=== PATIENT | male | born 2000 | race African-American/Black ===

== ENCOUNTER 2018-08-05 10:08 | Observation (INO) | payer OTHER ==
[2018-08-05] MEDS ORDERED: NS 1,000 ML IV ONE ×2 (10:27→18:48)
--- NOTE | 2018-08-05 10:36 | EDPHY ---
H & P Stated Complaint: SEEN AT [facility] FOR CP YESTERDAY/HAD ABNL LABS AND EKG - Personal History Current Tetanus Diphtheria and Acellular Pertussis (TDAP): Yes - Medical/Surgical History Hx Asthma: No Hx Chronic Respiratory Disease: No Hx Diabetes: No Hx Cardiac Disease: No Hx Renal Disease: No Hx Cirrhosis: No Hx Alcoholism: No Hx HIV/AIDS: No Hx Splenectomy or Spleen Trauma: No Other PMH: BRAIN CYST/HX SEIZURES - Social History Smoking Status: Never smoked Time Seen by Provider: 08/05/18 10:18 HPI/ROS: Chief complaint: Abnormal laboratory studies and EKG History of present illness: This is an 17-year-old male who presents to the emergency department for evaluation of abnormal laboratory studies and EKGs. Patient reports he was lifting weights 2 days ago. Yesterday developed some chest pain, initially described as a soreness and then became a pressure. He went to [facility]. Apparently he had laboratory studies performed yesterday and today which showed a hyperkalemia in the range of 6, elevated LFTs. They also reported an abnormal EKG. [facility] subsequently called back after he came to the emergency department and reported his CPK was 48,000. On my evaluation he states he is feeling better. His chest discomfort has resolved. He is pain free. He states he engaged in a typical exercise routine 2 days ago. He does note he has a history of seizures, he had been on Depakote since early fall, however it was switched approximately 9 days ago from Depakote to Lamictal. He denies other associated signs or symptoms. Review of systems: A 10 point review of systems was obtained and other than described above was negative (Kush Jenkins) - Social History Additional Social History: Patient denies the use of tobacco, alcohol or illicit drugs. (Kush Jenkins) - Physical Exam Exam: General Appearance: Alert, nontoxic. Eyes: Pupils equal and round no pallor or injection. ENT, Mouth: Mucous membranes moist. Respiratory: There are no retractions, lungs are clear to auscultation. Cardiovascular: Regular rate and rhythm. Gastrointestinal: Abdomen is soft and non tender, no masses, bowel sounds normal. Neurological: Alert and oriented x4. Strength and sensation intact and symmetrical. Skin: Warm and dry, no rashes. Musculoskeletal: Neck is supple non tender. Extremities are symmetrical, full range of motion. Psychiatric: Patient is oriented X 3, there is no agitation. (Kush Jenkins) Constitutional: Initial Vital Signs Temperature (C) 36.7 C 08/05/18 10:12 Heart Rate 70 08/05/18 10:12 Respiratory Rate 17 08/05/18 10:12 Blood Pressure 93/63 L 08/05/18 10:12 O2 Sat (%) 98 08/05/18 10:12 O2 Delivery Mode Room Air Allergies/Adverse Reactions: No Known Allergies Allergy (Verified 08/05/18 13:47) Home Medications: Medication Instructions Recorded Ibuprofen [Motrin (*)] 200 mg PO DAILY PRN 08/05/18 lamoTRIgine [LaMICtal] 25 mg PO Q2D 08/05/18 Medical Decision Making - Diagnostics EKG Interpretation: EKG: Complete interpretation has been separately recorded in the [employer] archive. Summary impression: Sinus rhythm, rate 79, LVH, early repolarization (Barry Cabrera) ED Course/Re-evaluation: Patient seen under the supervision of my secondary supervising physician Dr. Marco Antonio Cabrera. Patient presents to the emergency department with reported abnormal EKG, potassium and liver studies performed at [facility]. [facility] called while he was here stating that his CK was greater than 48,000. On presentation here he is nontoxic. Vital signs are stable. EKG unremarkable. Potassium within normal limits. He does have a transaminitis. CK greater than 30,000. He has been given 2 L of IV fluid in the emergency department. He will be admitted for further evaluation and care. The plan has been discussed with the family voiced understanding and agreement with it. (Kush Jenkins) Differential Diagnosis: Included but not limited to acute rhabdomyolysis, electrolyte abnormalities, renal failure, medication side effect (Kush Jenkins) Other Provider: Independent physician documentation PHYSICIAN DOCUMENTATION: The patient was evaluated and managed by the Physician Chief Catalyst Operator. My co- signature indicates that I have reviewed this chart and I agree with the findings and plan of care as documented. I am the secondary supervising physician. I reviewed the patient's laboratory testing, EKG and discussed his plan for admission with the physician assistant professor of philosophy (Barry Cabrera) - Data Points Laboratory Results: Laboratory Results 08/05/18 11:00 08/05/18 11:00 08/05/18 08/05/18 08/05/18 11:05 11:00 11:00 WBC RBC Hgb Hct MCV MCH MCHC RDW Plt Count MPV Neut % (Auto) Lymph % (Auto) Ballard % (Auto) Eos % (Auto) Baso % (Auto) Nucleat RBC Rel Count Absolute Neuts (auto) Absolute Lymphs (auto) Absolute Monos (auto) Absolute Eos (auto) Absolute Basos (auto) Absolute Nucleated RBC Immature Gran % Immature Gran # PT INR APTT Turbidity Cancelled Sodium Cancelled Potassium Cancelled Chloride Cancelled Carbon Dioxide Cancelled Anion Gap Cancelled BUN Cancelled Creatinine Cancelled Estimated GFR Cancelled Glucose Cancelled Uric Acid 5.5 mg/dL mg/dL (3.5-8.5) Calcium Cancelled Total Bilirubin Conjugated Bilirubin Unconjugated Bilirubin AST ALT Alkaline Phosphatase Creatine Kinase CK-MB (CK-2) Fraction CK-MB (CK-2) % Creatine Kinase Interp POC Troponin I 0.00 ng/mL ng/mL (0.00-0.08) Total Protein Albumin Lipase Specimen Hemolysis Cancelled 08/05/18 08/05/18 08/05/18 11:00 11:00 11:00 WBC 6.06 10^3/uL 10^3/uL (3.80-9.50) RBC 5.39 10^6/uL 10^6/uL (4.40-6.38) Hgb 16.9 g/dL g/dL (13.7-17.5) Hct 49.7 % % (40.0-51.0) MCV 92.2 fL fL (81.5-99.8) MCH 31.4 pg pg (27.9-34.1) MCHC 34.0 g/dL g/dL (32.4-36.7) RDW 12.3 % % (11.5-15.2) Plt Count 258 10^3/uL 10^3/uL (150-400) MPV 9.9 fL fL (8.7-11.7) Neut % (Auto) 49.0 % % (39.3-74.2) Lymph % (Auto) 39.9 % % (15.0-45.0) Ballard % (Auto) 6.9 % % (4.5-13.0) Eos % (Auto) 3.5 % % (0.6-7.6) Baso % (Auto) 0.5 % % (0.3-1.7) Nucleat RBC Rel Count 0.0 % % (0.0-0.2) Absolute Neuts (auto) 2.97 10^3/uL 10^3/uL (1.70-6.50) Absolute Lymphs (auto) 2.42 10^3/uL 10^3/uL (1.00-3.00) Absolute Monos (auto) 0.42 10^3/uL 10^3/uL (0.30-0.80) Absolute Eos (auto) 0.21 10^3/uL 10^3/uL (0.03-0.40) Absolute Basos (auto) 0.03 10^3/uL 10^3/uL (0.02-0.10) Absolute Nucleated RBC 0.00 10^3/uL 10^3/uL (0-0.01) Immature Gran % 0.2 % % (0.0-1.1) Immature Gran # 0.01 10^3/uL 10^3/uL (0.00-0.10) PT 14.2 SEC SEC (12.0-15.0) INR 1.08 (0.83-1.16) APTT 29.7 SEC SEC (23.0-38.0) Turbidity Sodium 139 mEq/L mEq/L (135-145) Potassium 4.6 mEq/L mEq/L (3.5-5.2) Chloride 105 mEq/L mEq/L (97-110) Carbon Dioxide 24 mEq/l mEq/l (22-31) Anion Gap 10 mEq/L mEq/L (6-14) BUN 16 mg/dL mg/dL (7-23) Creatinine 0.9 mg/dL mg/dL (0.7-1.3) Estimated GFR > 60 Glucose 84 mg/dL mg/dL (70-100) Uric Acid Calcium 10.0 mg/dL mg/dL (8.5-10.4) Total Bilirubin 1.3 mg/dL mg/dL (0.1-1.4) Conjugated Bilirubin 0.3 mg/dL mg/dL (0.0-0.5) Unconjugated Bilirubin 1.0 mg/dL mg/dL (0.0-1.1) AST 887 IU/L H IU/L (17-59) ALT 326 IU/L H IU/L (21-72) Alkaline Phosphatase 59 IU/L IU/L (38-126) Creatine Kinase > 02117 IU/L H IU/L (0-224) CK-MB (CK-2) Fraction 18.30 ng/mL H ng/mL (0.00-4.55) CK-MB (CK-2) % < 0.1 % % (0.0-4.0) Creatine Kinase Interp NEGATIVE (NEGATIVE) POC Troponin I Total Protein 7.9 g/dL g/dL (6.3-8.2) Albumin 4.9 g/dL g/dL (3.5-5.0) Lipase 87 IU/L IU/L (23-300) Specimen Hemolysis Medications Given: Discontinued Medications Sodium Chloride (Ns) 1,000 mls @ 0 mls/hr IV ONCE ONE; Wide Open PRN Reason: Protocol Stop: 08/05/18 10:28 Last Admin: 08/05/18 11:04 Dose: 1,000 mls Point of Care Test Results: Chemistry 08/05/18 11:05 POC Troponin I 0.00 ng/mL ng/mL (0.00-0.08) Departure - Departure Disposition: [facility] Inpatient Acute Clinical Impression: Rhabdomyolysis Qualifiers: Rhabdomyolysis type: non-traumatic Qualified Code(s): M62.82 - Rhabdomyolysis Condition: Good
[2018-08-05 11:20] LABS: PLATELET COUNT 258 10^3/uL (150-400)
[2018-08-05 11:25] LABS: INR 1.08 (0.83-1.16); PROTIME(PATIENT) 14.2 SEC (12.0-15.0)
--- NOTE | 2018-08-05 11:28 | CPEKG ---
Test Reason : OPEN Blood Pressure : / mmHG Vent. Rate : 079 BPM Atrial Rate : 080 BPM P-R Int : 172 ms QRS Dur : 094 ms QT Int : 381 ms P-R-T Axes : 073 080 046 degrees QTc Int : 437 ms Sinus rhythm LVH by voltage ST elev, probable normal early repol pattern Confirmed by Barry Cabrera ([id number]) on 08/05/2018 11:28:45 AM Referred By: Confirmed By:Barry Cabrera
[2018-08-05 13:10] LABS: CREATINE KINASE > 30000 IU/L (0-224)
[2018-08-05] MEDS ORDERED: ONDANSETRON DISINTEGRATING 4 MG TAB PO PRN (14:34)
[2018-08-05] MEDS ORDERED: ONDANSETRON 4 MG/2 ML VIAL IVP PRN (14:34)
[2018-08-05] MEDS ORDERED: oxyCODONE IR 5 MG TAB PO PRN (14:34)
[2018-08-05] MEDS ORDERED: ACETAMINOPHEN 325 MG TAB PO PRN (14:34)
--- NOTE | 2018-08-05 16:06 | PDGENHP ---
History and Physical - Chief Complaint abnormal labs - History of Present Illness 17yo M with history of seizure disorder on lamotrigine presents due to abnormal labs that were discovered for evaluation of chest pain. Woke up with a chest "ache" yesterday morning. Initially thought it was heartburn but not similar to prior episodes of such. This persisted prompting him to go to [facility] yesterday evening where labs showed a K 6.0, AST 700s, ALT 200s. He was instructed to return this morning for repeat labs, which he did and showed K 6.1 , AST 800s, ALT 200s and his CPK was reportedly 48,000. An ECG showed early repolarization. He was instructed to come to our ED for further evaluation. He feels generally fatigued but not weak. He did notice a darkening of his urine color over the weekend but this has improved to normal. He denies having any seizures. Has had 2 seizures in his life; last one was two kern ago in the setting of minimal sleep, dehydration, lack of PO intake. He has grand mal seizures and knows when they are about to occur; he did not have this sensation over the last few days. He is currently on lamictal for seizures , which was started 10 days ago. He was previously on depakote but stopped because it made him feel very lethargic. He was on keppra prior to depakote but stopped this because it made him feel as if he was going to have a seizure. He does report beginning a weight lifting exercise routine one week ago. He lifted weights last Friday through Friday and again two days ago on Friday. His muscles have been sore but nothing out of the ordinary. He hasn't lifted in about 6 months but has stayed relatively active playing basketball. He has also lifted weights in the past with no ill effects. Additionally, he has been drinking [id number]-bcc-uzdckys protein shakes up to 3 times daily for the last few weeks in order to regain some weight he lost unintentionally. He denies any alcohol consumption in the last two weeks. He drank intermittently while on depakote but this made his abdomen feel terrible. Of note, patient's mother reports that his LFTs were abnormal about 2 weeks ago while he was still on depakote. She does not know the exact lab values. History Information - Allergies/Home Medication List Allergies/Adverse Reactions: No Known Allergies Allergy (Verified 08/05/18 13:47) Home Medications: Ibuprofen [Motrin (*)] 200 mg PO DAILY PRN 08/05/18 [Last Taken Unknown] lamoTRIgine [LaMICtal] 25 mg PO Q2D 08/05/18 [Last Taken 08/03/18] I have personally reviewed and updated: family history, medical history, social history, surgical history - Past Medical History Additional medical history: seizure disorder - Surgical History Reports: no pertinent surgical hx - Family History Additional family history: no seizure history, no known myositis - Social History Smoking Status: Never smoked Alcohol Use: Rarely Drug Use: None Additional social history: Student at , 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 Review of Systems Review of Systems: ROS: 10pt was reviewed & negative except for what was stated in HPI & below Physical Exam Physical Exam: Temp Pulse Resp BP Pulse Ox 36.7 C 67 16 127/80 H 65 L 08/05/18 10:12 08/05/18 13:54 08/05/18 13:54 08/05/18 13:54 08/05/18 13:54 Constitutional: no apparent distress, appears nourished, not in pain Eyes: PERRL, anicteric sclera, EOMI Ears, Nose, Mouth, Throat: moist mucous membranes, hearing normal, ears appear normal, no oral mucosal ulcers Cardiovascular: regular rate and rhythym, no murmur, rub, or gallop, No edema Respiratory: no respiratory distress, no rales or rhonchi, clear to auscultation Gastrointestinal: normoactive bowel sounds, soft, non-tender abdomen, no palpable masses Genitourinary: no bladder fullness, no bladder tenderness Skin: warm, normal color, no rashes or abrasions, no fluctuance, no induration, No mottled Musculoskeletal: full muscle strength, no muscle tenderness, normal joint ROM, no joint effusions Neurologic: AAOx3 Psychiatric: interacting appropriately, not anxious, not encephalopathic, thought process linear Lab Data & Imaging Review 08/05/18 11:00 08/05/18 11:00 WBC 6.06 10^3/uL (3.80-9.50) 08/05/18 11:00 RBC 5.39 10^6/uL (4.40-6.38) 08/05/18 11:00 Hgb 16.9 g/dL (13.7-17.5) 08/05/18 11:00 Hct 49.7 % (40.0-51.0) 08/05/18 11:00 MCV 92.2 fL (81.5-99.8) 08/05/18 11:00 MCH 31.4 pg (27.9-34.1) 08/05/18 11:00 MCHC 34.0 g/dL (32.4-36.7) 08/05/18 11:00 RDW 12.3 % (11.5-15.2) 08/05/18 11:00 Plt Count 258 10^3/uL (150-400) 08/05/18 11:00 MPV 9.9 fL (8.7-11.7) 08/05/18 11:00 Neut % (Auto) 49.0 % (39.3-74.2) 08/05/18 11:00 Lymph % (Auto) 39.9 % (15.0-45.0) 08/05/18 11:00 [place] % (Auto) 6.9 % (4.5-13.0) 08/05/18 11:00 Eos % (Auto) 3.5 % (0.6-7.6) 08/05/18 11:00 Baso % (Auto) 0.5 % (0.3-1.7) 08/05/18 11:00 Nucleat RBC Rel Count 0.0 % (0.0-0.2) 08/05/18 11:00 Absolute Neuts (auto) 2.97 10^3/uL (1.70-6.50) 08/05/18 11:00 Absolute Lymphs (auto) 2.42 10^3/uL (1.00-3.00) 08/05/18 11:00 Absolute Monos (auto) 0.42 10^3/uL (0.30-0.80) 08/05/18 11:00 Absolute Eos (auto) 0.21 10^3/uL (0.03-0.40) 08/05/18 11:00 Absolute Basos (auto) 0.03 10^3/uL (0.02-0.10) 08/05/18 11:00 Absolute Nucleated RBC 0.00 10^3/uL (0-0.01) 08/05/18 11:00 Immature Gran % 0.2 % (0.0-1.1) 08/05/18 11:00 Immature Gran # 0.01 10^3/uL (0.00-0.10) 08/05/18 11:00 PT 14.2 SEC (12.0-15.0) 08/05/18 11:00 INR 1.08 (0.83-1.16) 08/05/18 11:00 APTT 29.7 SEC (23.0-38.0) 08/05/18 11:00 Turbidity Cancelled 08/05/18 11:00 Sodium 139 mEq/L (135-145) 08/05/18 11:00 Potassium 4.6 mEq/L (3.5-5.2) 08/05/18 11:00 Chloride 105 mEq/L (97-110) 08/05/18 11:00 Carbon Dioxide 24 mEq/l (22-31) 08/05/18 11:00 Anion Gap 10 mEq/L (6-14) 08/05/18 11:00 BUN 16 mg/dL (7-23) 08/05/18 11:00 Creatinine 0.9 mg/dL (0.7-1.3) 08/05/18 11:00 Estimated GFR > 60 08/05/18 11:00 Glucose 84 mg/dL (70-100) 08/05/18 11:00 Uric Acid 5.5 mg/dL (3.5-8.5) 08/05/18 11:00 Calcium 10.0 mg/dL (8.5-10.4) 08/05/18 11:00 Total Bilirubin 1.3 mg/dL (0.1-1.4) 08/05/18 11:00 Conjugated Bilirubin 0.3 mg/dL (0.0-0.5) 08/05/18 11:00 Unconjugated Bilirubin 1.0 mg/dL (0.0-1.1) 08/05/18 11:00 AST 887 IU/L (17-59) H 08/05/18 11:00 ALT 326 IU/L (21-72) H 08/05/18 11:00 Alkaline Phosphatase 59 IU/L (38-126) 08/05/18 11:00 Creatine Kinase > 74290 IU/L (0-224) H 08/05/18 11:00 CK-MB (CK-2) Fraction 18.30 ng/mL (0.00-4.55) H 08/05/18 11:00 CK-MB (CK-2) % < 0.1 % (0.0-4.0) 08/05/18 11:00 Creatine Kinase Interp NEGATIVE (NEGATIVE) 08/05/18 11:00 POC Troponin I 0.00 ng/mL (0.00-0.08) 08/05/18 11:05 Total Protein 7.9 g/dL (6.3-8.2) 08/05/18 11:00 Albumin 4.9 g/dL (3.5-5.0) 08/05/18 11:00 Lipase 87 IU/L (23-300) 08/05/18 11:00 Specimen Hemolysis Cancelled 08/05/18 11:00 Assessment & Plan Assessment: 17yo M with history of seizure disorder on lamotrigine who was being worked up for chest tightness found to have rhabdomyolysis. Plan: 1. Acute rhabdomyolysis: Non-traumatic. Could be caused by multiple mechanisms. Suspect r/t recent initiation of weight lifting routine vs seizure. Dietary supplemenents, which he is using, could precipitate. Query AEDs as well? - Aggressive IVF - Check CK q8h - Check TSH, EBV and CMV antibodies 2. Transaminitis: This seems to have preceded rhabdomyolysis and I wonder if caused by depakote. - Trend LFTs - Check acute hepatitis panel 3. Seizure disorder: Denies recent episodes. Recently started on lamictal and stopped depakote. - Will consult neurology to see if AEDs could have lead to #1 or #2 and for AED management 4. Chest pain: Now resolved. Likely r/t muscle spasm vs arrhythmia caused by electrolyte disturbance (K was elevated previously). Low concern for ACS. VTE ppx: LMWH Code: full Diet: regular Dispo: Admit under observation
[2018-08-05 18:37] LABS: CREATINE KINASE > 30000 IU/L (0-224)
[2018-08-05] MEDS: NS 1,000 ML IV SCH (23:46)
[2018-08-06 02:45] LABS: CREATINE KINASE 28158 IU/L (0-224)
[2018-08-06] MEDS: NS 1,000 ML IV SCH (06:01)
[2018-08-06] MEDS ORDERED: ENOXAPARIN 40 MG/0.4 ML SYR SC SCH (09:00)
--- NOTE | 2018-08-06 09:29 | GCON ---
NEUROLOGIC CONSULTATION HISTORY: The patient is a 17-year-old gentleman, whom I am asked to see in neurologic consultation r egarding prior history of seizure and recent rhabdomyolysis, approximately 5 days into starting lamot rigine. He was doing his regular workout of activity, when he recognized some chest pain and pressur e. He had gone to the [facility], and there was significant elevation of potassium and el evated liver enzymes, so they advised him to come to the emergency room, and he was found to have a C K level of 48,000. He had only been doing routine exercise 3 days ago for him. Since coming in the hospital, he has been hydrated, and his CK level is going down. He did not have any other unique exp osures. He says that as a child, there was nothing unusual, though he had a childhood episode where they never found the cause, and did not think he had a seizure, but there was some altered awareness when he is riding a horse. He then later has experienced only 2 generalized tonic-clonic seizures in his lifetime. First, he was treated with Keppra and had major side effects cognitively from that fo llowed by treatment with valproic acid, and did not tolerate that. Then just 5 days ago, was switche d over to lamotrigine. He is really uncomfortable continuing this medication. His provider is in [facility]. He has had some CBD that was given to the family from a friend who is in the [facility], and he had taken some, but not on any regular basis, and stopped it when he switched over to lamot rigine. 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 Currently, other than feeling tired, he is recovering and doing well. He is a sophomore in college. He does not use drugs, alcohol, or smoking. No family history in any 1st-degree relatives of seizdaniel pablo. He is otherwise a healthy young man. PHYSICAL EXAMINATION: VITAL SIGNS: The blood pressure is 108/63, pulse of 65, respirations 18, temp erature 36.7. LABORATORY: The CBC is normal. INR is normal. Current CK level is 28,000, down from his admission. TSH normal. The AST is 887, ALT 326. Normal kidney function with BUN of 16, creatinine 0.9. The lipase is normal. IMPRESSION: Total unit time of 50 minutes. I had a detailed discussion with the patient and his mot her. He does not want to continue this medication, and that is perfectly fine with me. He wants to switch from his current neurologist to see me, and I said that is also fine. We talked about what we know and do not know about the use of CBD in treating seizure, and there is not formal FDA approval for managing seizures purely with CBD, although it is commonly done off-label, and there is the possi bility of good control. The challenge becomes knowing his true risk of recurrent seizure. It is hig h that he could have a recurrent seizure at some point, but we do not know if that will happen. Ther e have only been 2 seizures in his lifetime. For now, I think he can be safely discharged and have o utpatient labs checked to make sure he continues to trend downward on his CK over the next few days, and then can follow up with me as an outpatient. I would discontinue the lamotrigine, and I advised him that I do not know whether he will have protection from seizure from CBD, but it is reasonable to try taking a dose of 200 mg per day in divided dosing. They will likely do that, and we can have fu rther discussions later as an outpatient. /[id number]/MODL
[2018-08-06 11:25] LABS: CREATINE KINASE 20639 IU/L (0-224)
[2018-08-06 11:43] LABS: HEPATITIS A ANTIBODY IGM (BCH) NEGATIVE (NEGATIVE); HEPATITIS B CORE AB IGM NEGATIVE (NEGATIVE); HEPATITIS B SURFACE ANTIGEN NEGATIVE (NEGATIVE)
[2018-08-06 11:54] LABS: HEPATITIS C ANTIBODY TOTAL NEGATIVE (NEGATIVE)
[2018-08-06 11:55] VITALS: BP 115/75
--- NOTE | 2018-08-06 12:53 | PDDCSUM ---
Discharge Summary Discharge Summary: Date of Admission: 08/05/2018 Date of Discharge: 08/06/2018 Consultants: neurology Discharge Diagnoses: 1. Rhabdomyolysis thought 2/2 medication side effect 2. Transaminitis 3. Seizure disorder 4. 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 Initially went to [facility] student clinic 2 days [employer] with chest tightness and labs revealed elevated potassium. Repeat labs the next day revealed CK of 48,000 and he was sent to [facility] ED. His rhabdomyolysis was felt to be related to lamotrigine usage. His renal function was normal. He was asymptomatic. His lamotrigine was discontinued. Neurology was consulted who felt that it was ok to discontinue his anti-epileptics (has only had 2 seizures in his lifetime) for now. He will follow up with Dr Bender. He also was noted to have a transaminitis with AST in 800s and ALT in 200s. Per patient's mother, he had abnormal LFTs prior to rhabdomyolysis. It is felt that his AST and ALT elevation was worsened by rhabdo but that he likely had abnormal LFTs due to depakote, which he was on just prior to switching to lamotrigine. LFTs improving at discharge. Medications: Please refer to EMR for complete list. Discontinued lamotrigine. Follow Up Plan: 1. Recheck CK level tomorrow at [facility] 2. Follow up in neurology clinic for seizure management 3. Recheck LFTs to ensure down-trending Physical Exam: Vitals reviewed, stable. Alert and oriented, RRR without mrg, lungs clear, abdomen soft, no edema, no rashes.
[2018-08-07] MEDS ORDERED: lamoTRIgine 25 MG TAB PO SCH (09:00)
== END 2018-08-06 13:20 | disposition home or self-care (01) ==
LOC: INTOOBSV 13:34 → F1N 15:18
PROVIDERS: ADMIT Internal Medicine; ATTEND Internal Medicine
DX: M62.82 Rhabdomyolysis (principal); R74.0 Nonspecific elevation of levels of transaminase and lactic acid dehydrogenase [LDH]; G40.909 Epilepsy, unspecified, not intractable, without status epilepticus; E87.5 Hyperkalemia; E86.9 Volume depletion, unspecified
CPT/HCPCS: 93005; 96360; 99285; G0378; 84484-ER; 86644-90; 86645-90; 86664-90; 86665-90; G0472; J1650